=== PATIENT | male | born 2000 | race Hispanic/Latino ===

== ENCOUNTER 2025-01-01 20:45 | Emergency (ER) | payer SELFPAY ==
[~2025-01-01] VITALS: Ht 180.3 cm; Wt 123.4 kg
--- NOTE | 2025-01-01 20:49 | NUR ---
COVID, FLU AND STREP SWABS COLLECTED AND SENT
[2025-01-01 21:33] LABS: RAPID GROUP A STREP negative (NEGATIVE)
[2025-01-01 21:40] LABS: SARS-CoV-2, RNA, NAAT NEGATIVE SARS CoV-2 (NEGATIVE)
[2025-01-01 21:43] LABS: INFLUENZA TYPE A Negative For Type A (NEGATIVE); INFLUENZA TYPE B Negative For Type B (NEGATIVE)
--- NOTE | 2025-01-01 22:41 | ERN ---
General Chief Complaint: Sore Throat Stated Complaint: SORE THROAT Time Seen by MD: 20:50 History of Present Illness Initial Comments 24-year-old male came in for difficulty swallowing due to pain in his throat and has been having drooling since earlier today. Patient has been having subjective fever. Patient otherwise has no concerns. Allergies: Coded Allergies: No Known Allergies (Unverified Allergy, Unknown, 01/01/25) Past Medical History Past Medical History: No Pertinent History Past Surgical History: None ROS Dictation CONSTITUTIONAL: Negative except for HPI HEAD/FACE: Negative except for HPI EENT: Negative except for HPI RESPIRATORY: Negative except for HPI GASTROINTESTINAL/ABDOMINAL: Negative except for HPI GENITOURINARY: Negative except for HPI MUSCULOSKELETAL: Negative except for HPI INTEGUMENTARY: Negative except for HPI NEUROLOGICAL/PSYCH: Negative except for HPI HEMATOLOGIC/LYMPHATIC: Negative except for HPI All Systems Negative, Except as noted above. 13 point review of systems assessed and all negative except for above. Physical Exam Physical Exam Dictation Vital Signs reviewed General Appearance: Alert, oriented x 3, no acute distress, well developed, nourished. Head and Face: non-traumatic. Eyes: PERRL, pink conjunctivas, eyelid no trauma, anterior chamber with arcus senilis. Ears: Pinnas intact and no signs of trauma or erythema ear canals clear and no discharge TM no erythema Nose: No discharge, no bleeding. Oropharynx: There is swelling noted with uvula deviation to the left cervical lymphadenopathy pharynx clear,no erythema, tonsils no exudates, no abscesses noted, mucous membrane moist Neck: Supple, non-tender, no thyromegaly, no masses, no JVD, no bruits Breast:Deferred Chest:No tenderness, no crepitus, no paradoxical movement, no retractions Lungs:Clear, well-ventilated, symmetric, no rales, no wheezing, no rhonchi, no stridor, good breath sounds bilaterally Heart: Regular rate, regular rhythm, no murmur, no gallops Vascular: no peripheral edema, Abdomen: Soft, positive bowel sounds, nondistended, no guarding, nontender, no rebound, no masses no hepatomegaly, no splenomegaly, no Almazan's sign, no hernias. Rectal: Deferred Genital: Deferred Neurological: Normal speech, motor function intact, sensory function intact Musculoskeletal: Neck nontender, full range of motion, back nontender, full range of motion, Extremities: nontender, full range of motion Skin: Color pink, dry, no turgor, no rash, no lacerations, no abrasions, no contusions. Lymphatic: Deferred Results Laboratory and Microbiology Lab and Micro Result Laboratory Tests Test 01/01/25 20:48 01/01/25 22:44 01/01/25 23:18 Influenza Type A Antigen Negative For Type A Influenza Type B Antigen Negative For Type B SARS-CoV-2, RNA, NAAT NEGATIVE SARS CoV-2 Group A Streptococcus Rapid negative (NEGATIVE) White Blood Count 13.3 K/uL (4.8-10.8) H Red Blood Count 5.68 MIL/uL (4.50-6.20) Hemoglobin 16.6 g/dL (14.0-18.0) Hematocrit 48.1 % (42-54) Mean Corpuscular Volume 84.7 fL (79-99) Mean Corpuscular Hemoglobin 29.2 pg (27.0-33.0) Mean Corpuscular Hemoglobin Concent 34.5 g/dL (32.0-36.0) Red Cell Distribution Width 12.1 % (11.0-15.5) Platelet Count 384 K/uL (130-400) Mean Platelet Volume 8.8 fL (7.5-10.5) Immature Granulocyte % (Auto) 0.6 % (0-1) Neutrophils (%) (Auto) 77.9 % (40.0-77.0) H Lymphocytes (%) (Auto) 11.3 % (21.0-51.0) L Monocytes (%) (Auto) 8.9 % (3.0-13.0) Eosinophils (%) (Auto) 0.8 % (0.0-8.0) Basophils (%) (Auto) 0.5 % (0.0-5.0) Neutrophils # (Auto) 10.3 K/uL (1.8-7.7) H Lymphocytes # (Auto) 1.5 K/uL (1.0-4.8) Monocytes # (Auto) 1.2 K/uL (0.1-1.0) H Eosinophils # (Auto) 0.11 K/uL (0.00-0.70) Basophils # (Auto) 0.06 K/uL (0.00-0.20) Absolute Immature Granulocyte (auto 0.08 K/uL (0-1) Nucleated Red Blood Cells 0.0 % (0.0-0.19) Lactic Acid Level 1.5 mmol/L (0.8-2.5) Procalcitonin < 0.05 ng/mL (0.05-0.5) L Sodium Level 137 mmol/L (136-145) Potassium Level 3.8 mmol/L (3.5-5.1) Chloride Level 101 mmol/L (101-111) Carbon Dioxide Level 27 mmol/L (21-32) Blood Urea Nitrogen 10 mg/dL (7-18) Creatinine 1.0 mg/dL (0.5-1.3) Glomerular Filtration Rate Calc 109 mL/min (>90) Random Glucose 103 mg/dL (70-105) Total Calcium 9.2 mg/dL (8.5-10.1) MDM MDM: Differential diagnosis: Rationale: Tests considered and ordered secondary to shared decision making include: Previous outside records reviewed: Old ER visits. Risk of complication and/or morbidity or mortality of patient management: None Medications-Per medication reconciliation Need for hospitalization: Patient does meet criteria for hospitalization. Need for emergency major/minor surgery: No There are no social concerns with this patient. Prescription drug management Prescriptions will include symptomatic care Patient's prior external medical records from other ER visits were reviewed by me as indicated. Prior testing and results from previous visits were reviewed. Prior tests were taken into account with medical decision making and resource utilization, independent historian/historians were used to obtain complete medical history. I independently interpreted the test that were performed, results were reviewed by me and considered findings on radiology if ordered. Medical management and examination interpretation discussions were had by me wi th other qualified healthcare professionals as indicated for the patient's care. Patient has peritonsillar abscess due to know ENT service available at our facility patient will be transferred to [facility] for ENT evaluation. Patient has been accepted and will be transferred via ambulance. Patient agrees and understands plan of care. ED Course Orders Procedure Category Date Status Time Influenza Type A & B, LAB 01/01/25 Complete Rapid 20:49 Rapid (Group A Strep) LAB 01/01/25 Complete 20:49 Covid Rna Naat LAB 01/01/25 Complete 20:49 Cbc With Differential LAB 01/01/25 Complete 22:35 Lactic Acid LAB 01/01/25 Complete 22:35 Procalcitonin LAB 01/01/25 Complete 22:35 Ketorolac PHA 01/01/25 Complete Tromethamine 15mg/Ml 23:00 Dexamethasone 4mg/Ml PHA 01/01/25 Complete 1ml Vial (Dexametha 23:00 Clindamycin Ivpb PHA 01/01/25 In Process 600mg/50ml (Cleocin 23:00 Ct Neck Soft Tiss CT 01/01/25 Taken W/Contrast 22:48 Basic Metabolic Panel LAB 01/01/25 Complete 23:30 Iohexol (Omnipaque) PHA 01/01/25 Complete 23:39 Current Medications Medications (Trade) Dose Ordered Sig/Renée Route PRN Reason Start Time Stop Time Status Last Admin Dose Admin Clindamycin HCl/ Dextrose 50 ml @ 100 mls/hr Q8H IV 01/01/25 23:00 01/11/25 22:59 01/01/25 22:49 Dexamethasone Sodium Phosphate (dexaMETHasone 4MG/ML 1ML VIAL) 10 mg ONCE ONCE IVP 01/01/25 23:00 01/01/25 23:01 DC 01/01/25 22:50 Iohexol (Omnipaque) 50 ml STK-MED ONCE IV 01/01/25 23:39 01/01/25 23:40 DC Ketorolac Tromethamine (toRADol) 15 mg ONCE ONCE IV 01/01/25 23:00 01/01/25 23:01 DC 01/01/25 22:50 Vital Signs Date Time Temp Pulse Resp B/P (MAP) Pulse Ox O2 Delivery O2 Flow Rate FiO2 01/02/25 00:03 98.1 97 18 119/68 96 Room Air* 0 21 01/01/25 21:17 98.8 101 18 132/71 96 Room Air* 0 21 01/01/25 20:47 98.8 106 20 135/92 97 Room Air DX & DISP Disposition: Transfer Departure Impression: Primary Impression: Peritonsillar abscess Condition: Stable Referrals: SELF,REFERRAL (PCP) AIMEE FRASER Jan 01, 2025 22:41 JAMESON HAIDER MD Jan 02, 2025 00:20
[2025-01-01] MEDS: CLINDAMYCIN IVPB 600MG/50ML 50 ML IV SCH (22:49)
[2025-01-01] MEDS: dexaMETHasone SOD PHOSPHATE 4 MG/ML 1ML VIAL IVP ONE (22:50)
[2025-01-01] MEDS: ketOROlac 15MG/ML VIAL (15MG/ML) IV ONE (22:50)
[2025-01-01 22:54] LABS: BASOPHILS # (AUTO) 0.06 K/uL (0.00-0.20); BASOPHILS % (AUTO) 0.5 % (0.0-5.0); EOSINOPHILS # (AUTO) 0.11 K/uL (0.00-0.70); EOSINOPHILS % (AUTO) 0.8 % (0.0-8.0); HEMATOCRIT 48.1 % (42-54); IMMATURE GRANULOCYTE ABSOLUTE 0.08 K/uL (0-1); LYMPHOCYTES # (AUTO) 1.5 K/uL (1.0-4.8); LYMPHOCYTES % (AUTO) 11.3 % (21.0-51.0); MEAN CORPUSCULAR HEMOGLOBIN 29.2 pg (27.0-33.0); MEAN CORPUSCULAR HGB CONC 34.5 g/dL (32.0-36.0); MEAN CORPUSCULAR VOLUME 84.7 fL (79-99); MONOCYTES # (AUTO) 1.2 K/uL (0.1-1.0); MONOCYTES % (AUTO) 8.9 % (3.0-13.0); NEUTROPHILS # (AUTO) 10.3 K/uL (1.8-7.7); NEUTROPHILS % (AUTO) 77.9 % (40.0-77.0); PLATELET COUNT (AUTO) 384 K/uL (130-400); RED BLOOD CELL COUNT(AUTO) 5.68 MIL/uL (4.50-6.20); RED CELL DISTRIBUTION WIDTH 12.1 % (11.0-15.5); WHITE BLOOD COUNT (AUTO) 13.3 K/uL (4.8-10.8)
--- NOTE | 2025-01-01 22:59 | NUR ---
TRANSFER CALL PLACED TO [facility] [employer] TO INITIATE TRANSFER FOR ENT SERVICES
[2025-01-01 23:32] LABS: POTASSIUM 3.8 mmol/L (3.5-5.1)
[2025-01-01] MEDS ORDERED: IOHEXOL-350 50ML VIAL IV ONE (23:39)
--- NOTE | 2025-01-01 23:39 | NUR ---
TRANSFER PT. ACCEPTED BY PENELOPE LIMON MD FOR TRANSFER TO [facility] [place] [facility]. REPORT: [phone]
--- NOTE | 2025-01-01 23:51 | NUR ---
[facility] CALLED FOR TRANSPORT
--- NOTE | 2025-01-01 23:51 | NUR ---
TRANSFER FINAL BED ASSIGNMENT AT THIS TIME--ER
[2025-01-02 00:03] VITALS: BP 119/68; PULSE 97; RESP 18; TEMP 98.1; O2SAT 96
--- NOTE | 2025-01-02 00:18 | NUR ---
REPORT CALLED TO [facility]. REPORT GIVEN TO NURSE MELA, ALL QUESTIONS ANSWERED.
--- NOTE | 2025-01-02 00:20 | HMCIMG ---
CT NECK SOFT TISS W/CONTRAST HISTORY: Right peritonsillar abscess COMPARISON: None TECHNIQUE: Multiple sequential axial images of the soft tissue neck were obtained. Patient was 50 cc of Omnipaque through intravenous route. FINDINGS: There is symmetrical enlargement of the right parapharyngeal soft tissue and right retropharyngeal soft tissue are noted. This is suggested of right tonsillitis with right parapharyngeal fat stranding. There is complex fluid collection measuring 9 mm in the right parapharyngeal area suggested of peritonsillar abscess. This extends into the right supra glottic region. Visualized portion of brain parenchyma within the posterior fossa is within normal limits. Parapharyngeal fat planes are preserved bilaterally. Parotid glands and submandibular glands are grossly within normal limits. There are normal size cervical lymph nodes. The airway is patent. Visualized portion of the lung apices are unremarkable. IMPRESSION: 1. Findings suggestive of tonsillitis with right peritonsillar abscess measuring [address] was performed with one or more following dose reduction techniques: automated exposure control, adjustment of the mA and kv according to patient's size, or use of a iterative reconstruction technique.
== END 2025-01-02 00:38 | disposition short-term general hospital (02) ==
LOC: EDH 20:45
DX: J36 Peritonsillar abscess (principal); Z20.822 Contact with and (suspected) exposure to COVID-19
CPT/HCPCS: 99285; 96365; 70491; 96375; 87635; 80048; 85025; 87880; 87804 ×2; 83605; 36415; 84145; J1100; J1885; J3490; Q9967